=== PATIENT | female | born 2000 | race Two or more races ===

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

== ENCOUNTER 2024-01-04 17:03 | Emergency (ER) | payer MEDICAID ==
[~2024-01-04] VITALS: Ht 162.6 cm; Wt 75.0 kg
[2024-01-04 17:14] VITALS: BP 111/64
[2024-01-04 17:47] LABS: Basophils # (auto) 0.1 10 ^3/uL (0-0.2); Basophils % (auto) 0.6 % (0.0-2.0); Eosinophils # (auto) 0.4 10 ^3/uL (0-0.8); Eosinophils % (auto) 4.1 % (0.0-7.0); Hematocrit 38.4 % (36.0-46.0); Lymphocytes # (auto) 3.1 10 ^3/uL (0.4-5.4); Mean Corpuscular Hemoglobin 27.6 pg (28.0-32.0); Mean Corpuscular Hgb Conc. 33.7 g/dL (32.0-36.0); Monocytes # (auto) 0.5 10 ^3/uL (0-1.3); Monocytes % (auto) 5.3 % (0.0-12.0); Neutrophils # (auto) 5.8 10 ^3/uL (1.6-8.6); Nucleated Red Blood Cells % 0.1 %; Red Blood Cells 4.69 10^6/uL (4.0-5.20); Red Cell Distribution Width 14.3 % (11.8-14.3); White Blood Cell 9.9 10^3/uL (4.4-10.8)
[2024-01-04 17:54] LABS: Chloride 107 mmol/L (98-107); Potassium 4.2 mmol/L (3.5-5.1); Sodium 139 mmol/L (136-145)
[2024-01-04 17:55] LABS: Anion Gap 9 (5-15); Calcium 10.1 mg/dL (8.7-10.4); Carbon Dioxide 23 mmol/L (20-30)
[2024-01-04 18:00] LABS: Blood Urea Nitrogen 8 mg/dL (9-23); Glucose 88 mg/dL (74-106)
[2024-01-04 18:14] LABS: Urine Bacteria FEW /hpf (None Seen); Urine Blood Negative /uL (Negative); Urine Clarity Clear (Clear); Urine Color Light-Yellow (Yellow); Urine Mucus FEW (None Seen); Urine Protein, UAD Negative (Negative); Urine Specific Gravity 1.012 (1.001-1.035); Urine Urobilinogen Normal (Negative); Urine WBC 2 /hpf (0 - 5); Urine pH 5.5 (5.0-9.0)
[2024-01-04 18:39] VITALS: PULSE 75; RESP 19; O2SAT 99
== END 2024-01-04 18:40 | disposition home or self-care (01) ==
LOC: ER 17:03
DX: R07.89 Other chest pain (principal); J45.909 Unspecified asthma, uncomplicated
CPT/HCPCS: 36415; 71045; 80048; 81001; 84484; 85025; 93005

== ENCOUNTER 2024-03-13 12:48 | Emergency (ER) | payer MEDICAID ==
[~2024-03-13] VITALS: Ht 162.6 cm; Wt 70.0 kg
[2024-03-13 13:36] VITALS: BP 138/78; PULSE 107; TEMP 98.3
[2024-03-13] MEDS: ALBUTEROL SULF 2.5 MG/0.5ML(0.5%) NEB SOLN NEB ONE (13:45)
[2024-03-13] MEDS: IPRATROPIUM BROM 0.5 MG/2.5ML INH SOL NEB ONE (13:45)
[2024-03-13] MEDS: methylPREDNISolone SOD SUCC 125 MG/2 ML VL IM ONE (14:15)
[2024-03-13 15:17] VITALS: RESP 18; O2SAT 99
[2024-03-13] MEDS ORDERED: PRED20TA2 PO (15:22)
[2024-03-13] MEDS ORDERED: ALBU108A5 IN (15:22)
[2024-03-13] MEDS ORDERED: AZIT-185 PO (15:22)
== END 2024-03-13 15:32 | disposition home or self-care (01) ==
LOC: ER 12:48
DX: J45.901 Unspecified asthma with (acute) exacerbation (principal)
CPT/HCPCS: 71046; 94640; 96372; 99283; J2919

== ENCOUNTER 2024-06-03 23:17 | Inpatient (IN) | payer MEDICAID ==
[~2024-06-03] VITALS: Ht 162.6 cm; Wt 72.5 kg
[~2024-06-03 23:17] MED LIST: ALBU108A5 IN; AZIT-185 PO; PRED20TA2 PO
[2024-06-03] MEDS: ACETAMINOPHEN 325 MG TAB PO ONE (23:45)
[2024-06-03] MEDS: IPRATROPIUM BROM 0.5 MG/2.5ML INH SOL NEB ONE (23:55)
[2024-06-03] MEDS: ALBUTEROL SULF 2.5 MG/0.5ML(0.5%) NEB SOLN NEB ONE (23:55)
[2024-06-04] VITALS (10 sets, daily range): BP systolic 104–124; BP diastolic 50–67; PULSE 89–115; RESP 12–94; TEMP 97.7–98.3; O2SAT 91–100
--- NOTE | 2024-06-04 01:03 | DVH ---
CHEST RADIOGRAPH Indication: Asthma, wheezing Technique: Single frontal view of the chest was obtained Comparison: XY CHEST PORTABLE on DOS: 01/04/24 FINDINGS: Lines and Tubes: None Lungs: Clear Pleura: No effusion. No pneumothorax. Cardiomediastinal contours: Unremarkable Bones: Unremarkable IMPRESSION: 1. Clear lungs.
[2024-06-04] MEDS: methylPREDNISolone SOD SUCC 125 MG/2 ML VL IM ONE (01:21)
[2024-06-04] MEDS ORDERED: MAGNESIUM SULFATE 1GM/100ML 100 ML IV ONE ×2 (01:30→13:45)
[2024-06-04] MEDS: ACETAMINOPHEN 325 MG TAB PO ONE (01:35)
[2024-06-04] MEDS: ALBUTEROL SULF 2.5 MG/0.5ML(0.5%) NEB SOLN NEB ONE (01:58)
[2024-06-04] MEDS: IPRATROPIUM BROM 0.5 MG/2.5ML INH SOL NEB ONE (01:58)
[2024-06-04] MEDS ORDERED: PRED20TA2 PO (01:59)
[2024-06-04] MEDS ORDERED: AZIT-43 PO (01:59)
[2024-06-04] MEDS ORDERED: ALBUAER3 IN (01:59)
--- NOTE | 2024-06-04 02:00 | ED.PDOC ---
SOB-HPI HPI Comments 23-year-old female presents to ER with complaints of asthma exacerbation x2 weeks. Patient with PMH significant for asthma reports she has been experiencing frequent asthma exacerbations x2 weeks with associated productive cough with white phlegm x1 week. Denies any pain. Reports she has been using her albuterol inhaler without relief. Patient presents to ER ambulatory on arrival, with steady gait, in no distress with pulse ox noted to be 93% on room and moderate wheezing noted to bilateral upper/lower lung garcia. Patient is also noted to have low-grade fever on arrival to ER at 99.7 F, denying any known fever prior to arrival to ER. Denies chest pain, nausea/vomiting, sore t hroat, body aches, chills, dizziness or any further symptoms/complaints Chief Complaint: Asthma Time Seen by MD: 23:41 Primary Care Provider: SIMBA Sadler notes: Nurses Notes, Medications, Allergies Information Source: Patient Mode of Arrival: Ambulatory Past Medical History PAST MEDICAL HISTORY: Asthma Surgical History: Denies all surgeries DIRECTOR CARDIOVASCULAR History: Denies all DIRECTOR CARDIOVASCULAR Hx Family History Family History: Unknown Social History Smoker: Non-Smoker Alcohol: Denies ETOH Use Drugs: Denies Drug Use Lives In: Home Constitutional: denies: chills, diaphoresis, fatigue, fever, malaise, sweats, weakness, others EENTM: denies: blurred vision, double vision, ear bleeding, ear discharge, ear drainage, ear pain, ear ringing, eye pain, eye redness, hearing loss, mouth pain, mouth swelling, nasal discharge, nose bleeding, nose congestion, nose pain, photophobia, tearing, throat pain, throat swelling, voice changes, others Respiratory: reports: others (As stated in HPI) Cardiovascular: denies: chest pain, dizzy spells, diaphoresis, Dyspnea on exertion, edema, irregular heart beat, left arm pain, lightheadedness, palpitations, PND, syncope, others Gastrointestinal: denies: abdomen distended, abdominal pain, blood streaked bowels, constipated, diarrhea, dysphagia, difficulty swallowing, hematemesis, melena, nausea, poor appetite, poor fluid intake, rectal bleeding, rectal pain, vomiting, others Genitourinary: denies: abnormal vagina bleeding, burning, dyspareunia, dysuria, flank pain, frequency, hematuria, incontinence, pain, , vagina discharge, urgency, others Neurological: denies: dizziness, fainting, headache, left sided numbness, left sided weakness, numbness, paresthesia, pre-existing deficit, right sided numbness, right sided weakness, seizure, speech problems, tingling, tremors, weakness, others Musculoskeletal: denies: back pain, gout, joint pain, joint swelling, muscle pain, muscle stiffness, neck pain, others Integumetry: denies: bruises, change in color, change in hair/nails, dryness, laceration, lesions, lumps, rash, wounds, others Allergic/Immunocompromised: denies: Difficulty Healing, Frequent Infections, Hives, Itching, others Hematologic/Lymphatic: denies: anemia, blood clots, easy bleeding, easy bruising, swollen glands, others Endocrine: denies: excessive hunger, excessive sweating, excessive thirst, excessive urination, flushing, intolerance to cold, intolerance to heat, unexplained weight gain, unexplained weight loss, others Psychiatric: denies: anxiety, bipolar disorder, depression, hopeless, panic disorder, schizophrenia, sleepless, suicidal, others Physical Exam General Appearance: No Apparent Distress HEENT: Normal ENT Inspection, PERRL/EOMI, Pharynx Normal, TMs Normal Neck: Full Range of Motion, Non-Tender, Normal Respiratory: Chest Non-Tender, Lungs Clear, No Accessory Muscle Use, No Respiratory Distress, Wheezing (Moderate wheezing noted to bilateral upper/lower lung garcia) Cardiovascular: No Murmur, No Gallop, Regular Rate/Rhythm Breast Exam: Deferred Gastrointestinal: NOT DONE Genitalia: Deferred Pelvic: Deferred Rectal: Deferred Extremities: Normal capillary refill, Normal range of motion Neurologic: Alert, equal opportunity specialist II-XII nml as Tested, No Motor Deficits, Normal Affect, Normal Mood, No Sensory Deficits Cerebellar Function: Normal Reflexes: Normal Skin: Dry, Normal Color, Warm Peripheral Pulses: 2+ Radial (R), 2+ Radial (L), 2+ Brachial (R), 2+ Brachial (L) Lymphatic: No Adenopathy Was a procedure done? Was a procedure done?: No Sedation Sedation?: No Differential Dx Differential Diagnosis: Pneumonia, Pulmonary Embolism, Respiratory Distress, Other (Status asthmaticus) X-Ray, Labs, Meds, VS Vital Signs Date Time Temp Pulse Resp B/P (MAP) Pulse Ox O2 Delivery O2 Flow Rate FiO2 06/04/24 01:58 20 93 Room Air* 0 21 06/04/24 01:37 92 Room Air 0 06/04/24 01:35 99.7 06/04/24 01:34 97.9 104 16 109/69 (82) 97 97.9 06/03/24 23:55 20 86 Room Air* 0 21 06/03/24 23:36 99.7 111 20 111/65 (80) 93 06/03/24 23:36 93 Room Air* 0 21 Lab Test 06/04/24 03:24 Range/Units White Blood Count 13.0 H 4.4-10.8 10^3/uL Red Blood Count 4.53 4.0-5.20 10^6/uL Hemoglobin 12.1 L 12.2-16.2 g/dL Hematocrit 36.9 36.0-46.0 % Mean Corpuscular Volume 81.4 80.0-100.0 fL Mean Corpuscular Hemoglobin 26.6 L 28.0-32.0 pg Mean Corpuscular Hemoglobin Concent 32.7 32.0-36.0 g/dL Red Cell Distribution Width 15.7 H 11.8-14.3 % Platelet Count 323 140-450 10^3/uL Mean Platelet Volume 8.9 6.9-10.8 fL Neutrophils (%) (Auto) 71.7 37.0-80.0 % Lymphocytes (%) (Auto) 21.1 10.0-50.0 % Monocytes (%) (Auto) 2.0 0.0-12.0 % Eosinophils (%) (Auto) 4.6 0.0-7.0 % Basophils (%) (Auto) 0.6 0.0-2.0 % Neutrophils # (Auto) 9.3 H 1.6-8.6 10 ^3/uL Lymphocytes # (Auto) 2.7 0.4-5.4 10 ^3/uL Monocytes # (Auto) 0.3 0-1.3 10 ^3/uL Eosinophils # (Auto) 0.6 0-0.8 10 ^3/uL Basophils # (Auto) 0.1 0-0.2 10 ^3/uL Nucleated Red Blood Cells 0.1 % Sodium Level 139 136-145 mmol/L Potassium Level 3.6 3.5-5.1 mmol/L Chloride Level 105 98-107 mmol/L Carbon Dioxide Level 23 20-31 mmol/L Anion Gap 11 5-15 Blood Urea Nitrogen 9 9-23 mg/dL Creatinine 0.83 0.550-1.02 mg/dL Glomerular Filtration Rate Calc 103 >90 mL/min BUN/Creatinine Ratio 10.8 10.0-20.0 Serum Glucose 139 H 74-106 mg/dL Calcium Level 10.3 8.7-10.4 mg/dL Current Medications Medications (Trade) Dose Ordered Sig/Matthew Route Start Time Stop Time Status Last Admin Ipratropium [place] (Atrovent Medneb) 0.5 mg ONCE ONCE NEB 06/03/24 23:45 06/03/24 23:46 DC 06/03/24 23:55 Albuterol (Ventolin Medneb) 5 mg ONCE ONCE NEB 06/03/24 23:45 06/03/24 23:46 DC 06/03/24 23:55 Methylprednisolone Sodium Succinate (Solu Medrol) 125 mg ONCE ONCE IM 06/03/24 23:45 06/03/24 23:46 DC 06/04/24 01:21 Acetaminophen (Tylenol Tablet) 650 mg ONCE ONCE PO 06/04/24 01:30 06/04/24 01:31 DC 06/04/24 01:35 Albuterol (Ventolin Medneb) 20 mg ONCE ONCE NEB 06/04/24 01:45 06/04/24 01:46 DC 06/04/24 01:58 Ipratropium [place] (Atrovent Medneb) 0.5 mg ONCE ONCE NEB 06/04/24 01:45 06/04/24 01:46 DC 06/04/24 01:58 Ceftriaxone Sodium (Rocephin) 1,000 mg ONCE ONCE IM 06/04/24 02:15 06/04/24 02:16 DC 06/04/24 04:21 Sodium Chloride 1,000 ml @ 1,000 mls/hr Q1H ONCE IV 06/04/24 03:15 06/04/24 04:14 DC 06/04/24 04:20 PATIENT: ABUNDIO DICKSONVINAYAKT: [id number]: [id number] : 2000 LOC: ER ROOM / BED: / AGE / SEX: 23 / F ADM STATUS: REG ER SERVICE 2332 ORDERING PHYSICIAN: JASMYNE LAY PROCEDURE(s): CXR1 - CHEST XRAY 1 VIEW REASON: Asthma, wheezing ORDER NUMBER(s): [id number], ACCESSION NUMBER(s): [id number] CHEST RADIOGRAPH Indication: Asthma, wheezing Technique: Single frontal view of the chest was obtained Comparison: XY CHEST PORTABLE on DOS: 01/04/24 FINDINGS: Lines and Tubes: None Lungs: Clear Pleura: No effusion. No pneumothorax. Cardiomediastinal contours: Unremarkable Bones: Unremarkable IMPRESSION: 1. Clear lungs. ATED BY: HARIKA CARLOS DO DICTATED DATE/TIME: 06/04/24100 SIGNED BY: HARIKA CARLOS DO SIGNED DATE/TIME: 06/04/24100 CC: waiver signed Chest x-ray reviewed Solu-Medrol 125 mg IM ordered Duo nebulizer treatment ordered Continuous nebulizer treatment ordered Tylenol 650 mg p.o. ordered Rocephin 1 g IM ordered CBC ordered BMP ordered Hep-Lock IV ordered Magnesium 1 g IV ordered Patient had no improvement with 2 breathing treatments and remaining hypoxic on RA at 89-90% Patient placed on 2L nasal cannula with improvement to 94% on room air, resting comfortably at bedside Patient admitted to hospitalist for status asthmaticus Images Reviewed?: Images reviewed and evaluated by me Time of 1ST Reevaluation: 12:08 Reevaluation 1ST: N/A Time of 2ND Reevaluation: 01:50 Reevaluation 2ND: Unchanged Patient Education/Counseling: Diagnosis, Treatment, Prognosis, Need For Follow Up Family Education/Counseling: No Family Present Departure 1 Departure Time of Disposition: 03:14 Impression: Primary Impression: Status asthmaticus Qualified Codes: J45.52 - Severe persistent asthma with status asthmaticus Additional Impression: Acute bronchitis Qualified Codes: J20.9 - Acute bronchitis, unspecified Disposition: ADMITTED INPATIENT Condition: Serious Critical Care Note Critical Care Time?: No Stability Stability form required: No Heart Score Heart Score: Heart Score Response (Comments) Value History N/A 0 EKG N/A 0 Age N/A 0 Risk Factors N/A 0 Troponin N/A 0 Total 0 JASMYNE LAY Jun 04, 2024 02:00
[2024-06-04 03:41] LABS: Eosinophils # (auto) 0.6 10 ^3/uL (0-0.8); Hemoglobin 12.1 g/dL (12.2-16.2); Lymphocytes # (auto) 2.7 10 ^3/uL (0.4-5.4); Monocytes # (auto) 0.3 10 ^3/uL (0-1.3); Red Cell Distribution Width 15.7 % (11.8-14.3)
[2024-06-04 03:42] LABS: Basophils # (auto) 0.1 10 ^3/uL (0-0.2); Basophils % (auto) 0.6 % (0.0-2.0); Eosinophils % (auto) 4.6 % (0.0-7.0); Hematocrit 36.9 % (36.0-46.0); Lymphocytes % (auto) 21.1 % (10.0-50.0); Mean Corpuscular Hemoglobin 26.6 pg (28.0-32.0); Mean Corpuscular Hgb Conc. 32.7 g/dL (32.0-36.0); Mean Corpuscular Volume 81.4 fL (80.0-100.0); Neutrophils # (auto) 9.3 10 ^3/uL (1.6-8.6); Neutrophils % (auto) 71.7 % (37.0-80.0); Nucleated Red Blood Cells % 0.1 %; Platelet Count (auto) 323 10^3/uL (140-450); Red Blood Cells 4.53 10^6/uL (4.0-5.20)
[2024-06-04 03:45] LABS: Chloride 105 mmol/L (98-107); Potassium 3.6 mmol/L (3.5-5.1); Sodium 139 mmol/L (136-145)
[2024-06-04 03:46] LABS: Anion Gap 11 (5-15); Carbon Dioxide 23 mmol/L (20-31)
[2024-06-04 03:47] LABS: Calcium 10.3 mg/dL (8.7-10.4)
[2024-06-04 03:52] LABS: BUN/Creatinine Ratio 10.8 (10.0-20.0)
[2024-06-04 03:56] LABS: Blood Urea Nitrogen 9 mg/dL (9-23); Glucose 139 mg/dL (74-106)
[2024-06-04] MEDS ORDERED: TEMAZEPAM 15 MG CAP PO PRN (04:00)
[2024-06-04] MEDS ORDERED: ACETAMINOPHEN 325 MG TAB PO PRN (04:00)
[2024-06-04] MEDS ORDERED: MORPHINE SULFATE INJ 2 MG/ml SYRG IV PRN (04:00)
[2024-06-04] MEDS ORDERED: NITROGLYCERIN 0.4 MG SL TAB SL PRN (04:00)
[2024-06-04] MEDS: SODIUM CHLORIDE 0.9% 1,000 ML IV ONE ×2 (04:20→14:11)
[2024-06-04] MEDS: cefTRIAXone SOD 1,000 MG VL IM ONE (04:21)
[2024-06-04] MEDS: MAGNESIUM SULFATE 1GM/100ML 100 ML IV ONE (04:50)
--- NOTE | 2024-06-04 05:10 | DVHHP2 ---
History of Present Illness Reason for Visit: Shortness of breath History of Present Illness 23-year-old female presents for evaluation of shortness for breath. Patient reports intermittent episodes of asthma attacks over the past two weeks. She states that today she had no relief using her inhaler and nebulizers at home. She also associates having a productive cough with white phlegm over the past one-week. Denies fever or chills. No other acute complaints reported. Past Medical History Asthma Past Surgical History Denies Family History Noncontributory Smoke: No ALCOHOL: none Drugs: None Lives: with Family Review of Systems Review of Systems Review of systems are currently negative otherwise addressed in HPI. Allergies: Coded Allergies: NO KNOWN ALLERGIES (Unverified , 08/15/19) Medications Current Medications Medications Dose Ordered Sig/Matthew Route Start Time Stop Time Status Last Admin Dose Admin Azithromycin 250 ml @ 125 mls/hr DAILY IV 06/04/24 10:00 Methylprednisolone Sodium Succinate 40 mg BID IV 06/04/24 10:00 Albuterol 2.5 mg Q6HPRN PRN NEB 06/04/24 04:00 Ipratropium [place] 0.5 mg Q6HPRN PRN NEB 06/04/24 04:00 Budesonide 0.25 mg BID NEB 06/04/24 10:00 Temazepam 15 mg QHSP PRN PO 06/04/24 04:00 Ondansetron HCl 4 mg Q4HP PRN IV 06/04/24 04:00 Acetaminophen 650 mg Q6HP PRN PO 06/04/24 04:00 Nitroglycerin 0.4 mg Q5MINP PRN SL 06/04/24 04:00 Morphine Sulfate 2 mg Q30M PRN IV 06/04/24 04:00 Exam Vital Signs Vital Signs Date Time Temp Pulse Resp B/P (MAP) Pulse Ox O2 Delivery O2 Flow Rate FiO2 06/04/24 05:03 98.3 109 18 102/53 (69) 91 98.3 06/04/24 01:58 Room Air* 0 21 Exam Gen: 23-year-old female in mild distress Skin: Warm, dry, normal color and texture, no rash. HEENT: Normocephalic atraumatic, mucous membranes moist and pink. Neck: Cervical and supraclavicular nodes normal without enlargement, trachea is midline, thyroid gland is normal without masses. Pulmonary: Bilateral wheeze Cardiac: Regular rate and rhythm. No murmur Abdomen: Soft, nontender, nondistended, bowel sounds present all 4 quadrants, no guarding, no rigidity, no organomegaly. Extremities: No cyanosis, clubbing, no edema Neuro: Cranial nerves II through XII grossly intact, normal affect and speech, no focal motor deficits. Labs/Xrays ORDERING PHYSICIAN: JASMYNE LAY PROCEDURE(s): CXR1 - CHEST XRAY 1 VIEW REASON: Asthma, wheezing ORDER NUMBER(s): [id number], ACCESSION NUMBER(s): [id number] CHEST RADIOGRAPH Indication: Asthma, wheezing Technique: Single frontal view of the chest was obtained Comparison: XY CHEST PORTABLE on DOS: 01/04/24 FINDINGS: Lines and Tubes: None Lungs: Clear Pleura: No effusion. No pneumothorax. Cardiomediastinal contours: Unremarkable Bones: Unremarkable IMPRESSION: 1. Clear lungs. Electronically Signed by: Filippo Maldonado at 06/04/ Labs Test 06/04/24 03:24 Range/Units White Blood Count 13.0 H 4.4-10.8 10^3/uL Red Blood Count 4.53 4.0-5.20 10^6/uL Hemoglobin 12.1 L 12.2-16.2 g/dL Hematocrit 36.9 36.0-46.0 % Mean Corpuscular Volume 81.4 80.0-100.0 fL Mean Corpuscular Hemoglobin 26.6 L 28.0-32.0 pg Mean Corpuscular Hemoglobin Concent 32.7 32.0-36.0 g/dL Red Cell Distribution Width 15.7 H 11.8-14.3 % Platelet Count 323 140-450 10^3/uL Mean Platelet Volume 8.9 6.9-10.8 fL Neutrophils (%) (Auto) 71.7 37.0-80.0 % Lymphocytes (%) (Auto) 21.1 10.0-50.0 % Monocytes (%) (Auto) 2.0 0.0-12.0 % Eosinophils (%) (Auto) 4.6 0.0-7.0 % Basophils (%) (Auto) 0.6 0.0-2.0 % Neutrophils # (Auto) 9.3 H 1.6-8.6 10 ^3/uL Lymphocytes # (Auto) 2.7 0.4-5.4 10 ^3/uL Monocytes # (Auto) 0.3 0-1.3 10 ^3/uL Eosinophils # (Auto) 0.6 0-0.8 10 ^3/uL Basophils # (Auto) 0.1 0-0.2 10 ^3/uL Nucleated Red Blood Cells 0.1 % Sodium Level 139 136-145 mmol/L Potassium Level 3.6 3.5-5.1 mmol/L Chloride Level 105 98-107 mmol/L Carbon Dioxide Level 23 20-31 mmol/L Anion Gap 11 5-15 Blood Urea Nitrogen 9 9-23 mg/dL Creatinine 0.83 0.550-1.02 mg/dL Glomerular Filtration Rate Calc 103 >90 mL/min BUN/Creatinine Ratio 10.8 10.0-20.0 Serum Glucose 139 H 74-106 mg/dL Calcium Level 10.3 8.7-10.4 mg/dL Assessment/Plan Assessment/Plan Assessment Acute on chronic respiratory failure Status asthmaticus Plan Admit the patient to telemetry to the hospitalist Javier stanton Azithromycin Continue treatment per orders. Plan discussed with: Patient My Orders Orders - LAURYN CADENA AGACNP Procedure Category Date Status Time Azithromycin 500mg/ PHA 06/04/24 In Process 250ml (Zithromax 50 10:00 Methylprednisolone PHA 06/04/24 In Process Sod Succ (Solu Medrol 10:00 Albuterol Medneb PHA 06/04/24 In Process (Ventolin Medneb) 04:00 Ipratropium Medneb PHA 06/04/24 In Process (Atrovent Medneb) 04:00 Budesonide PHA 06/04/24 In Process (Inhalation) 10:00 Regular Diet DIET 06/04/24 Transmitted Breakfast Basic Metabolic Panel LAB 06/05/24 Verified 04:00 Admit ADMIT 06/04/24 Transmitted 03:52 Temazepam (Restoril) PHA 06/04/24 In Process 04:00 Ondansetron Hcl PHA 06/04/24 In Process (Zofran) 04:00 Complete Blood Count LAB 06/05/24 Verified 04:00 Condition: Fair TELLO 06/04/24 In Process 03:52 Acetaminophen Tablet PHA 06/04/24 In Process (Tylenol Tablet) 04:00 Bedrest With Bathroom TELLO 06/04/24 In Process Privileg 03:52 Nitroglycerin PHA 06/04/24 In Process Sublingual (Ntrostat 04:00 Morphine Sulfate PHA 06/04/24 In Process Injection 04:00 Stat Ekg For Chest [facility] 06/04/24 In Process Pain 03:52 Notify Md Of Changes [facility] 06/04/24 In Process From Base 03:52 General Maintenance Technician For [facility] 06/04/24 In Process 24 Hours 03:52 Emergency Dysrhythmia [facility] 06/04/24 In Process Protocol 03:52 Rhythm Strips Once [facility] 06/04/24 In Process Every Shift 03:52 Oxygen By Nasal RT 06/04/24 Transmitted Cannula 03:52 Date of Service: Jun 04, 2024 Billing Provider: LAURYN CADENA Common Visit Codes: [id number] INP/OBS CARE (HIGH) LAURYN CADENA Jun 04, 2024 05:10
[2024-06-04] MEDS: methylPREDNISolone SOD SUCC 40 MG/ML VL IV SCH (10:29)
[2024-06-04] MEDS: BUDESONIDE (INHALATION) 0.5 MG/2 ML NEB NEB SCH ×2 (10:44→17:54)
[2024-06-04] MEDS: ALBUTEROL SULF 2.5 MG/0.5ML(0.5%) NEB SOLN NEB PRN (10:47)
[2024-06-04] MEDS: IPRATROPIUM BROM 0.5 MG/2.5ML INH SOL NEB PRN (10:47)
[2024-06-04] MEDS: AZITHROMYCIN 500MG/ 250ML 250 ML IV SCH (11:08)
--- NOTE | 2024-06-04 13:38 | DVHPN2 ---
Subjective Patient states that her breathing difficulties have improved. Reviewed: Care Plan, H&P, Labs, Medications, Previous Orders Changes from previous H/P or p: No Changes General: Per HPI Objective Vitals Vital Signs Date Time Temp Pulse Resp B/P (MAP) Pulse Ox O2 Delivery O2 Flow Rate FiO2 06/04/24 07:45 97.7 105 18 105/65 (78) 94 97.7 06/04/24 07:45 Nasal Cannula* 2 28 Intake/Output Intake and Output 06/04/24 07:00 Intake Total 1000 ml Balance 1000 ml Intake IV Total 1000 ml General Appearance: Alert, Oriented X3, Cooperative, mild distress HEENT: Atraumatic, PERRLA Lungs: Other (Inspiratory and expiratory wheezing in upper and lower lobes.) Cardiovascular: Normal S1, Normal S2, Other (Sinus tachycardia) Abdomen: Normal bowel sounds, Soft, No tenderness Musculoskeletal: Normal sensory function, Normal motor function Neuro: Normal speech Psych/Mental Status: Mental status NL, Mood NL Medications Current Medications Medications Dose Ordered Sig/Matthew Route Start Time Stop Time Status Last Admin Dose Admin Azithromycin 250 ml @ 125 mls/hr DAILY IV 06/04/24 10:00 06/04/24 11:08 125 MLS/HR Methylprednisolone Sodium Succinate 40 mg BID IV 06/04/24 10:00 06/04/24 10:29 40 MG Temazepam 15 mg QHSP PRN PO 06/04/24 04:00 Ondansetron HCl 4 mg Q4HP PRN IV 06/04/24 04:00 Acetaminophen 650 mg Q6HP PRN PO 06/04/24 04:00 Nitroglycerin 0.4 mg Q5MINP PRN SL 06/04/24 04:00 Morphine Sulfate 2 mg Q30M PRN IV 06/04/24 04:00 Albuterol 2.5 mg Q6H NEB 06/04/24 18:00 UNV Budesonide 0.5 mg BID NEB 06/04/24 22:00 UNV Ipratropium [place] 0.5 mg Q6H NEB 06/04/24 18:00 UNV Laboratory Results Laboratory Tests 06/04/24 03:24 Chemistry Test 06/04/24 03:24 Calcium Level 10.3 mg/dL (8.7-10.4) Labs and/or images reviewed: Labs reviewed by me, Image(s) reviewed by me Assessment/Plan Assessment/Plan Impression: -acute hypoxic respiratory failure -asthma exacerbation -leukocytosis Plan: -DuoNebs q.6 hours -Increase Pulmicort to 0.5 mg twice a day -Continue IV Solu-Medrol -gentle IV hydration -continue antibiotic therapy with azithromycin -transfer to Medical/Surgical Total time spent with patient discussing and formulating plan of care: 35 minutes. This medical document was created using an electronic medical record system with [employer] dictation system. Although this document has been carefully reviewed, there may still be some phonetic and typographical errors. These areas are purely typographical due to imperfections of the software programs, and do not reflect any compromise in the patient's medical care. Plan discussed with: Patient, Other (RN) My Orders Orders - LILIAN MTZ NP Procedure Category Date Status Time Albuterol Medneb PHA 06/04/24 Logged (Ventolin Medneb) 18:00 Budesonide PHA 06/04/24 Logged (Inhalation) 22:00 Ipratropium Medneb PHA 06/04/24 Logged (Atrovent Medneb) 18:00 Magnesium Sulfate PHA 06/04/24 Logged 1gm/100ml 13:45 Sodium Chloride 0.9% PHA 06/04/24 Logged 13:45 Transfer Orders XFER 06/04/24 Transmitted 13:32 Date of Service: Jun 04, 2024 Billing Provider: LILIAN MTZ NP Common Visit Codes: [id number] INP/OBS CARE(HIGH) LILIAN MTZ NP Jun 04, 2024 13:38
[2024-06-04] MEDS: ALBUTEROL SULF 2.5 MG/0.5ML(0.5%) NEB SOLN NEB SCH (17:54)
[2024-06-04] MEDS: IPRATROPIUM BROM 0.5 MG/2.5ML INH SOL NEB SCH (17:54)
[2024-06-04 18:16] LABS: Rapid Influenza A Negative (Negative); Rapid Influenza B Negative (Negative)
[2024-06-04 18:17] LABS: COVID19 ANTIGEN SOFIA FIA NEGATIVE (NEGATIVE)
[2024-06-04] MEDS: ONDANSETRON HCL 4 MG/2 ML VIAL IV PRN (22:45)
[2024-06-05] VITALS (13 sets, daily range): BP systolic 94–114; BP diastolic 52–58; PULSE 81–109; RESP 12–18; TEMP 36.6; O2SAT 93–100
[2024-06-05 07:31] LABS: Basophils # (auto) 0 10 ^3/uL (0-0.2); Eosinophils # (auto) 0 10 ^3/uL (0-0.8); Monocytes # (auto) 0.4 10 ^3/uL (0-1.3); Monocytes % (auto) 2.5 % (0.0-12.0); Red Cell Distribution Width 15.9 % (11.8-14.3)
[2024-06-05 07:37] LABS: Hematocrit 36.8 % (36.0-46.0); Lymphocytes # (auto) 1.7 10 ^3/uL (0.4-5.4); Lymphocytes % (auto) 10.7 % (10.0-50.0); Mean Corpuscular Hemoglobin 26.6 pg (28.0-32.0); Mean Corpuscular Hgb Conc. 32.6 g/dL (32.0-36.0); Mean Corpuscular Volume 81.8 fL (80.0-100.0); Neutrophils # (auto) 14.1 10 ^3/uL (1.6-8.6); Neutrophils % (auto) 86.8 % (37.0-80.0); Platelet Count (auto) 353 10^3/uL (140-450); White Blood Cell 16.3 10^3/uL (4.4-10.8)
[2024-06-05 07:44] LABS: Potassium 4.4 mmol/L (3.5-5.1); Sodium 139 mmol/L (136-145)
[2024-06-05 07:45] LABS: Anion Gap 8 (5-15); Calcium 9.8 mg/dL (8.7-10.4); Carbon Dioxide 23 mmol/L (20-31)
[2024-06-05 07:50] LABS: Chloride 108 mmol/L (98-107); Glucose 131 mg/dL (74-106)
[2024-06-05 08:17] LABS: BUN/Creatinine Ratio 14.3 (10.0-20.0); Blood Urea Nitrogen 11 mg/dL (9-23)
[2024-06-05] MEDS ORDERED: DOXY100C79 PO (10:39)
--- NOTE | 2024-06-05 13:10 | DVHDS2 ---
Discharge Summary Date of Admission Jun 04, 2024 at 03:55 Date of Discharge: Jun 05, 2024 Admitting Diagnosis Acute on chronic respiratory failure Labs/Diagnostic Data: Laboratory Results Test 06/05/24 06:04 06/04/24 17:42 White Blood Count 16.3 10^3/uL (4.4-10.8) Red Blood Count 4.50 10^6/uL (4.0-5.20) Hemoglobin 12.0 g/dL (12.2-16.2) Hematocrit 36.8 % (36.0-46.0) Mean Corpuscular Volume 81.8 fL (80.0-100.0) Mean Corpuscular Hemoglobin 26.6 pg (28.0-32.0) Mean Corpuscular Hemoglobin Concent 32.6 g/dL (32.0-36.0) Red Cell Distribution Width 15.9 % (11.8-14.3) Platelet Count 353 10^3/uL (140-450) Mean Platelet Volume 9.3 fL (6.9-10.8) Neutrophils (%) (Auto) 86.8 % (37.0-80.0) Lymphocytes (%) (Auto) 10.7 % (10.0-50.0) Monocytes (%) (Auto) 2.5 % (0.0-12.0) Eosinophils (%) (Auto) 0.0 % (0.0-7.0) Basophils (%) (Auto) 0.0 % (0.0-2.0) Neutrophils # (Auto) 14.1 10 ^3/uL (1.6-8.6) Lymphocytes # (Auto) 1.7 10 ^3/uL (0.4-5.4) Monocytes # (Auto) 0.4 10 ^3/uL (0-1.3) Eosinophils # (Auto) 0 10 ^3/uL (0-0.8) Basophils # (Auto) 0 10 ^3/uL (0-0.2) Nucleated Red Blood Cells 0.0 % Sodium Level 139 mmol/L (136-145) Potassium Level 4.4 mmol/L (3.5-5.1) Chloride Level 108 mmol/L (98-107) Carbon Dioxide Level 23 mmol/L (20-31) Anion Gap 8 (5-15) Blood Urea Nitrogen 11 mg/dL (9-23) Creatinine 0.77 mg/dL (0.550-1.02) Glomerular Filtration Rate Calc 112 mL/min (>90) BUN/Creatinine Ratio 14.3 (10.0-20.0) Serum Glucose 131 mg/dL (74-106) Calcium Level 9.8 mg/dL (8.7-10.4) Influenza Type A Antigen Negative (Negative) Influenza Type B Antigen Negative (Negative) SARS-CoV-2 Antigen (Rapid) Negative (NEGATIVE) Other Laboratory Tests 06/05/24 06:04 Brief Hx & Hospital Course: History of Present Illness 23-year-old female presents for evaluation of shortness for breath. Patient reports intermittent episodes of asthma attacks over the past two weeks. She states that today she had no relief using her inhaler and nebulizers at home. She also associates having a productive cough with white phlegm over the past one-week. Denies fever or chills. No other acute complaints reported. Course of hospitalization: Patient was started on bronchodilators, inhaled corticosteroids as well as IV Solu-Medrol. Antibiotic therapy was started. Today the patient was inspiratory and expiratory wheezing has resolved. She has been weaned off of oxygen. The patient states that she was able to go home today. Patient will be continued on antibiotic therapy with doxycycline 100 mg p.o. b.i.d.. She states that she was not seen her PCP in quite some time and is in the current process of changing her PCP. The patient reports that she has 130 doses left of her Ventolin MDI. Patient will be discharged home, and instructed to follow up with the discharge Clinic in one week. Physical examination General: Alert and Oriented x3. No acute distress. Well-nourished. Eyes: EOMI. Anicteric. HENT: Moist mucous membranes. Lungs: Clear to auscultation bilaterally. No accessory muscle use. Cardiovascular: Regular rate and rhythm. No murmur. No JVD. Abdomen: Soft, non-tender and non-distended. No palpable masses. Extremities: No edema. Non-tender. Skin: No rashes or lesions. Warm. Neurologic: No focal neurological deficits. CN II-XII grossly intact, but not individually tested. Psychiatric: Cooperative. Appropriate mood and affect. Total time spent with patient discussing and formulating plan of care: 35 minutes. This medical document was created using an electronic medical record system with [employer] dictation system. Although this document has been carefully reviewed, there may still be some phonetic and typographical errors. These areas are purely typographical due to imperfections of the software programs, and do not reflect any compromise in the patient's medical care. Condition at Discharge: Fair Final Diagnosis/Problems List Acute asthma exacerbation Secondary Diagnosis: -acute hypoxic respiratory failure -asthma exacerbation -leukocytosis Discharge Disposition: Home Discharge Instruct/Medications Diet: Regular Activity: No Restrictions, As Tolerated Follow Up/Referral: DC clinic in 1 week Medications: Albuterol MDI II puffs Q4hrs asthma attack Doxycycline 100mg po BID x 5 days 36 Discharge Statement: "Patient was advised to return to the ER or call 911 if any headaches, dizziness, shortness of breath, chest pain, abdominal pain, bleeding, fevers, or worsening of medical condition. Patient was counseled about treatment plan, medications, possible side effects, patientverbalized understanding. All questions were answered to the best of my ability. This discharge took greater then 30 minutes in planning, reviewing documentation, counseling the patient, and discussing with other team members." ASSESSMENT ASSESSMENT Assessment Acute asthma exacerbation Date of Service: Jun 05, 2024 Billing Provider: LILIAN MTZ NP Common Visit Codes: 59807-YUU/OBS DISCH DAY >30min LILIAN MTZ NP Jun 05, 2024 13:10
== END 2024-06-05 13:38 | disposition home or self-care (01) | DRG 145 ==
LOC: ER 23:17 → TELE 06-04 03:55 → TELE-E-ADS 06-04 18:28
PROVIDERS: ADMIT Nurse Practitioner; ATTEND Nurse Practitioner Acute Care
DX: J20.9 Acute bronchitis, unspecified (principal); J96.21 Acute and chronic respiratory failure with hypoxia; J45.902 Unspecified asthma with status asthmaticus; J45.901 Unspecified asthma with (acute) exacerbation; R65.10 Systemic inflammatory response syndrome (SIRS) of non-infectious origin without acute organ dysfunction; D72.829 Elevated white blood cell count, unspecified; Z20.822 Contact with and (suspected) exposure to COVID-19
CPT/HCPCS: 36415; 80048; 85025; 87426; 87804; 94640; G0378; J0696; J2405

== ENCOUNTER 2024-06-09 20:55 | Inpatient (IN) | payer MEDICAID ==
[~2024-06-09] VITALS: Ht 162.6 cm; Wt 69.8 kg
[~2024-06-09 20:55] MED LIST changes: +DOXY100C79 PO
--- NOTE | 2024-06-09 21:15 | ED.PDOC ---
History of Present Illness HPI Comments 23-year-old female with PMHx Asthma presents with a chief complaint of SOB, cough, nausea, and vomiting. Patient reports that she was recently admitted and discharged from this facility x 1 week ago for her asthma exacerbation. Patient mentions that the rescue inhaler that she was given has not helped her relieve her symptoms. Patient is currently 91% on room air and is tachycardic at 138. Patient reports some nausea and vomiting, and is not actively vomiting. Time Seen by MD: 21:09 Primary Care Provider: SIMBA Sadler Notes: Medications, Allergies Allergies: Coded Allergies: NO KNOWN ALLERGIES (Unverified , 08/15/19) Home Meds Active Scripts Doxycycline (Monohydrate) (Doxycycline) 100 Mg Cap, 100 MG PO BID for 5 Days, #10 CAP Prov:LILIAN MTZ NP 06/05/24 Albuterol Sulfate (Albuterol Sulfate Hfa) 108 Mcg/Act Aer, 108 MCG IN TID, #90 AER Prov:OSMIN MINOR 03/13/24 Prednisone (Prednisone) 20 Mg Tab, 60 MG PO DAILY, #15 TAB Prov:OSMIN MINOR 03/13/24 Azithromycin (ZITHROMAX TABLET) 250 Mg Tb, 250 MG PO DAILY for 5 Days, #6 TAB Prov:OSMIN MINOR 03/13/24 Discontinued Scripts Albuterol Sulfate (VENTOLIN MDI) 90 Mcg Ih, 2 PUFF IN Q4HPRN, #1 INH 0 Refills Prov:JASMYNE LAY 06/04/24 Prednisone (Prednisone) 20 Mg Tab, 20 MG PO BID for 5 Days, #10 TAB 0 Refills Prov:JASMYNE LAY 06/04/24 Azithromycin (Azithromycin) 250 Mg Tab, 250 MG PO DAILY MDD 500 for 5 Days, #6 TAB 0 Refills 2 TABLETS ORALLY ON DAY ONE, THEN 1 TABLET ORALLY DAILY FOR 4 DAYS Prov:JASMYNE LAY 06/04/24 Information Source: Patient Mode of Arrival: Ambulatory Severity: Moderate Timing: Days Duration: Intermittent Prehospital treatment: None Past Medical History PAST MEDICAL HISTORY: Asthma Surgical History: Denies all surgeries TILE LAYER HELPER History: Denies all TILE LAYER HELPER Hx Family History Family History: Unknown Social History Smoker: Non-Smoker Alcohol: Denies ETOH Use Drugs: Denies Drug Use Lives In: Home Constitutional: denies: chills, diaphoresis, fatigue, fever, malaise, sweats, weakness, others EENTM: denies: blurred vision, double vision, ear bleeding, ear discharge, ear drainage, ear pain, ear ringing, eye pain, eye redness, hearing loss, mouth pain, mouth swelling, nasal discharge, nose bleeding, nose congestion, nose pain, photophobia, tearing, throat pain, throat swelling, voice changes, others Respiratory: reports: cough, shortness of breath; denies: hemoptysis, orthopnea, SOB at rest, SOB with excertion, stridor, wheezing, others Cardiovascular: denies: chest pain, dizzy spells, diaphoresis, Dyspnea on exertion, edema, irregular heart beat, left arm pain, lightheadedness, palpitations, PND, syncope, others Gastrointestinal: reports: nausea, vomiting; denies: abdomen distended, abdo mariusz pain, blood streaked bowels, constipated, diarrhea, dysphagia, difficulty swallowing, hematemesis, melena, poor appetite, poor fluid intake, rectal bleeding, rectal pain, others Genitourinary: denies: abnormal vagina bleeding, burning, dyspareunia, dysuria, flank pain, frequency, hematuria, incontinence, pain, , vagina discharge, urgency, others Neurological: denies: dizziness, fainting, headache, left sided numbness, left sided weakness, numbness, paresthesia, pre-existing deficit, right sided numbness, right sided weakness, seizure, speech problems, tingling, tremors, weakness, others Musculoskeletal: denies: back pain, gout, joint pain, joint swelling, muscle pain, muscle stiffness, neck pain, others Integumetry: denies: bruises, change in color, change in hair/nails, dryness, laceration, lesions, lumps, rash, wounds, others Allergic/Immunocompromised: denies: Difficulty Healing, Frequent Infections, Hives, Itching, others Hematologic/Lymphatic: denies: anemia, blood clots, easy bleeding, easy bruising, swollen glands, others Endocrine: denies: excessive hunger, excessive sweating, excessive thirst, excessive urination, flushing, intolerance to cold, intolerance to heat, unexplained weight gain, unexplained weight loss, others Psychiatric: denies: anxiety, bipolar disorder, depression, hopeless, panic disorder, schizophrenia, sleepless, suicidal, others All Other Systems: Reviewed and Negative Physical Exam General Appearance: No Apparent Distress, Normal HEENT: Normal ENT Inspection, Pharynx Normal, TMs Normal Neck: Full Range of Motion, Non-Tender, Normal, Normal Inspection Respiratory: Chest Non-Tender, Lungs Clear, No Accessory Muscle Use, No Respiratory Distress, Normal Breath Sounds Cardiovascular: No Edema, No JVD, No Murmur, No Gallop, Normal Peripheral Pulses, Tachycardia Breast Exam: Deferred Gastrointestinal: No Organomegaly, Non Tender, No Pulsatile Mass, Normal Bowel Sounds, Soft Genitalia: Deferred Pelvic: Deferred Rectal: Deferred Extremities: No calf tenderness, Normal capillary refill, Normal inspection, Normal range of motion, Non-tender, No pedal edema Musculoskeletal : Apperance: Normal Neurologic: Alert, speech and language tutor II-XII nml as Tested, No Motor Deficits, Normal Affect, Normal Mood, No Sensory Deficits Cerebellar Function: Normal Reflexes: Normal Skin: Dry, Normal Color, Warm Lymphatic: No Adenopathy Was a procedure done? Was a procedure done?: No Differential Dx Considerations may include: Asthma exacerbation, viral syndrome, pneumonia X-Ray, Labs, Meds, VS Vital Signs Date Time Temp Pulse Resp B/P (MAP) Pulse Ox O2 Delivery O2 Flow Rate FiO2 06/10/24 01:19 97.7 110 18 103/69 (80) 94 97.7 06/09/24 21:59 102.9 06/09/24 21:30 18 93 Room Air* 0 21 06/09/24 21:10 102.9 140 24 96/58 (71) 94 Lab Test 06/09/24 22:03 06/09/24 21:26 06/09/24 21:25 Range/Units Influenza Type A Antigen Positive Negative Influenza Type B Antigen Negative Negative SARS-CoV-2 Antigen (Rapid) Negative NEGATIVE White Blood Count 11.4 #H 4.4-10.8 10^3/uL Red Blood Count 4.90 4.0-5.20 10^6/uL Hemoglobin 13.0 12.2-16.2 g/dL Hematocrit 39.9 36.0-46.0 % Mean Corpuscular Volume 81.5 80.0-100.0 fL Mean Corpuscular Hemoglobin 26.6 L 28.0-32.0 pg Mean Corpuscular Hemoglobin Concent 32.7 32.0-36.0 g/dL Red Cell Distribution Width 15.7 H 11.8-14.3 % Platelet Count 383 140-450 10^3/uL Mean Platelet Volume 8.6 6.9-10.8 fL Neutrophils (%) (Auto) 78.1 37.0-80.0 % Lymphocytes (%) (Auto) 14.7 10.0-50.0 % Monocytes (%) (Auto) 6.9 0.0-12.0 % Eosinophils (%) (Auto) 0.2 0.0-7.0 % Basophils (%) (Auto) 0.1 0.0-2.0 % Neutrophils # (Auto) 8.9 H 1.6-8.6 10 ^3/uL Lymphocytes # (Auto) 1.7 0.4-5.4 10 ^3/uL Monocytes # (Auto) 0.8 0-1.3 10 ^3/uL Eosinophils # (Auto) 0 0-0.8 10 ^3/uL Basophils # (Auto) 0 0-0.2 10 ^3/uL Nucleated Red Blood Cells 0.0 % Sodium Level 139 136-145 mmol/L Potassium Level 3.1 L 3.5-5.1 mmol/L Chloride Level 104 98-107 mmol/L Carbon Dioxide Level 26 20-31 mmol/L Anion Gap 9 5-15 Blood Urea Nitrogen 13 9-23 mg/dL Creatinine 0.87 0.550-1.02 mg/dL Glomerular Filtration Rate Calc 97 >90 mL/min BUN/Creatinine Ratio 14.9 10.0-20.0 Serum Glucose 106 74-106 mg/dL Calcium Level 9.7 8.7-10.4 mg/dL Current Medications Medications (Trade) Dose Ordered Sig/Matthew Route Start Time Stop Time Status Last Admin Albuterol (Ventolin Medneb) 5 mg ONCE ONCE NEB 06/09/24 21:15 06/09/24 21:16 DC 06/09/24 21:26 Ipratropium [place] (Atrovent Medneb) 0.5 mg ONCE ONCE NEB 06/09/24 21:15 06/09/24 21:16 DC 06/09/24 21:26 Dexamethasone Sodium Phosphate (Decadron Injection) 10 mg ONCE ONCE PO 06/09/24 21:15 06/09/24 21:16 DC 12/22/24 21:59 Acetaminophen (Tylenol Tablet) 650 mg ONCE ONCE PO 06/09/24 21:30 06/09/24 21:31 DC 06/09/24 21:59 Time of 1ST Reevaluation: 21:39 Reevaluation 1ST: Unchanged Patient Education/Counseling: Diagnosis, Treatment, Prognosis Family Education/Counseling: No Family Present Departure 1 Departure Time of Disposition: 01:10 (Patient has a flu. Patient is now breathing comfortably on like to go home. We will discharge patient home with outpatient follow up) Impression: Primary Impression: Acute asthma exacerbation Qualified Codes: J45.21 - Mild intermittent asthma with (acute) exacerbation Additional Impression: Influenza A Disposition: 01 HOME / SELF CARE / HOMELESS Condition: Stable Additional Instructions: You have influenza a It is important to stay well rested and well hydrated. You can take Tylenol and Motrin as needed for pain and fever. For a sore throat you can drink warm tea with honey. You can take [id number] pseudoephedrine for nasal congestion. Continue to use your inhaler regularly. He should follow up with your regular doctor within 1 week to ensure you are doing better. If your symptoms worsen or you have any other concerns please return to the emergency room. Discharged With: Self Critical Care Note Critical Care Time?: No Stability Stability form required: No I personally scribed for SIGRID DILL MD ([email or web address]) on 06/09/24 at 21:15. Electronically submitted by Eduardo Santacruz ([email or web address]). SIGRID DILL MD Jun 09, 2024 21:15
[2024-06-09] MEDS: ALBUTEROL SULF 2.5 MG/0.5ML(0.5%) NEB SOLN NEB ONE (21:26)
[2024-06-09] MEDS: IPRATROPIUM BROM 0.5 MG/2.5ML INH SOL NEB ONE (21:26)
[2024-06-09 21:49] LABS: Basophils # (auto) 0 10 ^3/uL (0-0.2); Basophils % (auto) 0.1 % (0.0-2.0); Eosinophils # (auto) 0 10 ^3/uL (0-0.8); Eosinophils % (auto) 0.2 % (0.0-7.0); Hematocrit 39.9 % (36.0-46.0); Lymphocytes # (auto) 1.7 10 ^3/uL (0.4-5.4); Lymphocytes % (auto) 14.7 % (10.0-50.0); Mean Corpuscular Hemoglobin 26.6 pg (28.0-32.0); Mean Corpuscular Hgb Conc. 32.7 g/dL (32.0-36.0); Mean Corpuscular Volume 81.5 fL (80.0-100.0); Monocytes # (auto) 0.8 10 ^3/uL (0-1.3); Monocytes % (auto) 6.9 % (0.0-12.0); Neutrophils # (auto) 8.9 10 ^3/uL (1.6-8.6); Neutrophils % (auto) 78.1 % (37.0-80.0); Platelet Count (auto) 383 10^3/uL (140-450); Red Cell Distribution Width 15.7 % (11.8-14.3); White Blood Cell 11.4 10^3/uL (4.4-10.8)
[2024-06-09 21:54] LABS: Chloride 104 mmol/L (98-107); Sodium 139 mmol/L (136-145)
[2024-06-09 21:55] LABS: Anion Gap 9 (5-15); Calcium 9.7 mg/dL (8.7-10.4); Carbon Dioxide 26 mmol/L (20-31)
[2024-06-09] MEDS: ACETAMINOPHEN 325 MG TAB PO ONE (21:59)
[2024-06-09] MEDS: DexAMETHasone SOD PHOS 10MG/1ML VIAL INJ PO ONE (21:59)
[2024-06-09 22:00] LABS: BUN/Creatinine Ratio 14.9 (10.0-20.0); Blood Urea Nitrogen 13 mg/dL (9-23); Glucose 106 mg/dL (74-106); Potassium 3.1 mmol/L (3.5-5.1)
--- NOTE | 2024-06-09 22:01 | DVH ---
CHEST RADIOGRAPH Indication: sob Technique: Frontal and lateral view of the chest was obtained Comparison: XY CHEST TWO VIEWS ROUTINE on DOS: 03/13/24 FINDINGS: Lines and Tubes: None Lungs: Clear Pleura: No effusion. No pneumothorax. Cardiomediastinal contours: Unremarkable Bones: Unremarkable IMPRESSION: 1. No evidence of acute disease.
[2024-06-09 22:58] LABS: COVID19 ANTIGEN SOFIA FIA NEGATIVE (NEGATIVE)
[2024-06-09 23:00] LABS: Rapid Influenza B Negative (Negative)
[2024-06-09 23:02] LABS: Rapid Influenza A Positive (Negative)
[2024-06-10] VITALS (13 sets, daily range): BP systolic 103–109; BP diastolic 55–69; PULSE 86–104; RESP 14–20; TEMP 97.7–98.1; O2SAT 92–100
[2024-06-10] MEDS: ALBUTEROL SULF 2.5 MG/0.5ML(0.5%) NEB SOLN NEB ONE ×2 (02:47→16:45)
--- NOTE | 2024-06-10 03:23 | DVHHPRES ---
History of Present Illness Resident Creating Document: ANTWON NOBLE RESIDENT History of Present Illness This is a 23-year-old female with past medical history of bronchial asthma presented to the ED with a chief complaint of shortness of breath, productive cough, nausea and vomiting for 2 days prior to this admission. According to the patient she was admitted in the [facility] last week for acute asthma exacerbation and was discharged 5 days ago with oral antibiotics. Patient mentioned for last 2 days she was having sore throat, productive cough with whitish to yellowish sputum, low-grade fever and shortness of breath that get worse and that prompted this visit. Patient mentions that the rescue inhaler that she was given has not helped relieve her symptoms. Patient is currently 91% on room air and is tachycardic at 138. Denies chest pain, dizziness, abdominal pain, dysuria, any change in bowel and bladder movement, sick contact or any recent traveling. Past Medical History Bronchial asthma Past Surgical History None Family History Family history significant for bronchial asthma. Past Social History Lives with family Nonsmoker, nonalcoholic and never tried any drugs. Review of Systems Constitutional: Yes: Fever, Malaise; No: Chills, Sweats, Weakness, Other Eyes: No: Pain, Vision change, Conjunctivae inflammation, Eyelid inflammation, Other, Redness ENT: No: Ear pain, Ear discharge, Nose pain, Nose discharge, Nose congestion, Mouth pain, Mouth swelling, Throat pain, Throat swelling, Other Respiratory: Cough, Shortness of breath, Wheezing, Sputum; No: Dry, SOB with excertion, Hemoptysis, Pleuritic Pain, Wheezing, Other Cardiovascular: No: Chest Pain, Palpitations, Orthopnea, Paroxysmal Noc. Dyspnea, Edema, Lt Headedness, Other Gastrointestinal: Nausea, Vomiting; No: Abdominal Pain, Diarrhea, Constipation, Melena, Hematochezia, Other Genitourinary: No Dysuria, No Frequency, No Incontinence, No Hematuria, No Retention, No Other Musculoskeletal: No: other, neck pain, shoulder pain, arm pain, back pain, hand pain, leg pain, foot pain Skin: No: Rash, Lesions, Jaundice, Bruising, Other Neurological: No: Weakness, Numbness, Incoordination, Change in speech, Conf usion, Seizures, Other Allergies: Coded Allergies: NO KNOWN ALLERGIES (Unverified , 08/15/19) Medications Current Medications Medications Dose Ordered Sig/Matthew Route Start Time Stop Time Status Last Admin Dose Admin Albuterol 2.5 mg Q6HR NEB 06/10/24 06:00 Ipratropium [place] 0.5 mg Q6HR NEB 06/10/24 06:00 Methylprednisolone Sodium Succinate 40 mg BID IV 06/10/24 10:00 Levofloxacin/ Dextrose 150 ml @ 100 mls/hr DAILY IV 06/10/24 04:00 Exam Vital Signs Vital Signs Date Time Temp Pulse Resp B/P (MAP) Pulse Ox O2 Delivery O2 Flow Rate FiO2 06/10/24 02:47 18 95 Room Air* 0 21 06/10/24 02:38 97.7 94 88/52 (64) 97.7 Exam Physical examination: General Appearance: Alert, Oriented X3, Cooperative, mild distress HEENT: Atraumatic, PERRLA, EOMI, Mucous membrane moist/pink Respiratory: Congested chest, bilateral wheezing Cardiovascular: Regular rate, Normal S1, Normal S2, No murmurs, no chest wall tenderness Abdominal: Normal bowel sounds, Soft, No tenderness, No hepatospenomegaly, No masses Extremities: No clubbing, No cyanosis, No edema, Normal pulses, No tenderness/swelling Skin: No rashes, No breakdown, No significant lesion Neuro: Normal gait, Normal speech, Strength at 5/5 X4 ext, Normal tone, Sensation intact, grossly intact cranial nerves. Psych/Mental Status: Mental status NL, Mood NL Labs/Xrays Labs Test 06/09/24 22:03 06/09/24 21:26 06/09/24 21:25 Range/Units Influenza Type A Antigen Positive Negative Influenza Type B Antigen Negative Negative SARS-CoV-2 Antigen (Rapid) Negative NEGATIVE White Blood Count 11.4 #H 4.4-10.8 10^3/uL Red Blood Count 4.90 4.0-5.20 10^6/uL Hemoglobin 13.0 12.2-16.2 g/dL Hematocrit 39.9 36.0-46.0 % Mean Corpuscular Volume 81.5 80.0-100.0 fL Mean Corpuscular Hemoglobin 26.6 L 28.0-32.0 pg Mean Corpuscular Hemoglobin Concent 32.7 32.0-36.0 g/dL Red Cell Distribution Width 15.7 H 11.8-14.3 % Platelet Count 383 140-450 10^3/uL Mean Platelet Volume 8.6 6.9-10.8 fL Neutrophils (%) (Auto) 78.1 37.0-80.0 % Lymphocytes (%) (Auto) 14.7 10.0-50.0 % Monocytes (%) (Auto) 6.9 0.0-12.0 % Eosinophils (%) (Auto) 0.2 0.0-7.0 % Basophils (%) (Auto) 0.1 0.0-2.0 % Neutrophils # (Auto) 8.9 H 1.6-8.6 10 ^3/uL Lymphocytes # (Auto) 1.7 0.4-5.4 10 ^3/uL Monocytes # (Auto) 0.8 0-1.3 10 ^3/uL Eosinophils # (Auto) 0 0-0.8 10 ^3/uL Basophils # (Auto) 0 0-0.2 10 ^3/uL Nucleated Red Blood Cells 0.0 % Sodium Level 139 136-145 mmol/L Potassium Level 3.1 L 3.5-5.1 mmol/L Chloride Level 104 98-107 mmol/L Carbon Dioxide Level 26 20-31 mmol/L Anion Gap 9 5-15 Blood Urea Nitrogen 13 9-23 mg/dL Creatinine 0.87 0.550-1.02 mg/dL Glomerular Filtration Rate Calc 97 >90 mL/min BUN/Creatinine Ratio 14.9 10.0-20.0 Serum Glucose 106 74-106 mg/dL Calcium Level 9.7 8.7-10.4 mg/dL Assessment/Plan Assessment/Plan Assessment and plan: # Acute exacerbation of bronchial asthma - Patient is on room air with saturation 97% - Chest x-ray revealed normal study - Duoneb with albuterol and ipratropium q.6 hours - IV methylprednisolone 40 mg b.i.d. - IV Levaquin 750 mg daily. # Influenza A infection - Serology is positive for influenza A, COVID negative - Tamiflu 75 mg p.o. b.i.d. # Hypokalemia - Replenished. Goal of care discussed with the patient for more than 20 minutes full code Plan of treatment discussed with Dr. Lyman Plan discussed with: Patient, Other My Orders Orders - ANTWON NOBLE RESIDENT Procedure Category Date Status Time Admit ADMIT 06/10/24 Transmitted 03:12 Stat Ekg For Chest TELLO 06/10/24 In Process Pain 03:12 Notify Md Of Changes TELLO 06/10/24 In Process From Base 03:12 Yeast Fermentation Attendant For TELLO 06/10/24 In Process 24 Hours 03:12 Emergency Dysrhythmia TELLO 06/10/24 In Process Protocol 03:12 Rhythm Strips Once TELLO 06/10/24 In Process Every Shift 03:12 Oxygen By Nasal RT 06/10/24 Transmitted Cannula 03:12 Albuterol Medneb PHA 06/10/24 In Process (Ventolin Medneb) 06:00 Ipratropium Medneb PHA 06/10/24 In Process (Atrovent Medneb) 06:00 Methylprednisolone PHA 06/10/24 In Process Sod Succ (Solu Medrol 10:00 Levofloxacin 750mg PHA 06/10/24 In Process (Levaquin) 04:00 Regular Diet DIET 06/10/24 Transmitted Breakfast Code Status CODE 06/10/24 Transmitted 03:12 Date of Service: Jun 10, 2024 Billing Provider: MIKE LYMAN MD Common Visit Codes: [id number] INP/OBS CARE (HIGH) ANTWON NOBLE RESIDENT Jun 10, 2024 03:22 MIKE LYMAN MD Jun 10, 2024 09:58
[2024-06-10] MEDS: POTASSIUM EFFERVESENT TAB 25 MEQ PO ONE (03:40)
[2024-06-10] MEDS: levoFLOXacin 750MG 150 ML IV SCH (03:44)
[2024-06-10] MEDS: IPRATROPIUM BROM 0.5 MG/2.5ML INH SOL NEB SCH ×2 (06:20→18:51)
[2024-06-10] MEDS: ALBUTEROL SULF 2.5 MG/0.5ML(0.5%) NEB SOLN NEB SCH ×2 (06:21→18:51)
[2024-06-10 06:55] LABS: Basophils # (auto) 0 10 ^3/uL (0-0.2); Basophils % (auto) 0.4 % (0.0-2.0); Eosinophils # (auto) 0 10 ^3/uL (0-0.8); Eosinophils % (auto) 0.1 % (0.0-7.0); Hematocrit 38.7 % (36.0-46.0); Hemoglobin 12.9 g/dL (12.2-16.2); Lymphocytes % (auto) 9.6 % (10.0-50.0); Mean Corpuscular Hemoglobin 27.2 pg (28.0-32.0); Mean Corpuscular Hgb Conc. 33.4 g/dL (32.0-36.0); Mean Corpuscular Volume 81.4 fL (80.0-100.0); Monocytes # (auto) 0.6 10 ^3/uL (0-1.3); Monocytes % (auto) 5.4 % (0.0-12.0); Neutrophils % (auto) 84.5 % (37.0-80.0); Platelet Count (auto) 334 10^3/uL (140-450); Red Blood Cells 4.76 10^6/uL (4.0-5.20); Red Cell Distribution Width 15.7 % (11.8-14.3); White Blood Cell 10.6 10^3/uL (4.4-10.8)
[2024-06-10 07:01] LABS: Chloride 103 mmol/L (98-107); Potassium 4.2 mmol/L (3.5-5.1); Sodium 137 mmol/L (136-145)
[2024-06-10 07:02] LABS: Anion Gap 10 (5-15); Carbon Dioxide 24 mmol/L (20-31)
[2024-06-10 07:07] LABS: BUN/Creatinine Ratio 12.1 (10.0-20.0)
[2024-06-10 07:08] LABS: Blood Urea Nitrogen 8 mg/dL (9-23); Glucose 143 mg/dL (74-106)
[2024-06-10] MEDS: methylPREDNISolone SOD SUCC 40 MG/ML VL IV SCH (09:46)
[2024-06-10] MEDS: OSELTAMIVIR 75 MG CAP PO SCH (09:46)
[2024-06-10 12:38] LABS: Urine Bacteria None Seen /hpf (None Seen)
[2024-06-10 12:59] LABS: Amphetamine Screen, Urine Neg (NEGATIVE); Barbiturate Scree,Urine Neg (NEGATIVE); Benzodiazephine Screen, Urine Neg (NEGATIVE); Cannabinoid Screen, Urine Neg (NEGATIVE); Cocaine Screen, Urine Neg (NEGATIVE); Opiate Scree,Urine Neg (NEGATIVE); Phencyclidine Screen, Urine Neg (NEGATIVE)
[2024-06-10 13:05] LABS: Urine Blood Negative /uL (Negative); Urine Clarity Clear (Clear); Urine Color Light-Yellow (Yellow); Urine Mucus FEW (None Seen); Urine Protein, UAD Negative (Negative); Urine Specific Gravity 1.018 (1.001-1.035); Urine Urobilinogen Normal (Negative); Urine WBC <1 /hpf (0 - 5); Urine pH 5.5 (5.0-9.0)
--- NOTE | 2024-06-10 16:11 | DVHPNRES ---
Progress Note Date Seen: Jun 10, 2024 Resident Creating Document: DIGNA ANDREA RESIDENT Medical Necessity Reason Pt with a Central, PICC or Fol: No Subjective Review of Systems Patient is 23 years old female with past medical history of bronchial asthma came with a complaint of shortness of breaths. Patient reported that she has been having worsening short of breath for last couple of days. Patient also complained of cough with yellowish green sputum. Patient reported that she was recently hospitalized for acute exertional asthma and and was discharged with albuterol inhaler but later with the inhaler was not helping her out and shortness of breaths was worsening. Patient also endorsed some sore throat for last 2 days and nausea and vomiting couple of times which was mainly watery, no blood. Initial lab workup revealed leukocytosis WBC 11.4, hypokalemia with potassium 3.1, influenza test positive for type a influenza. Chest x-ray negative for acute cardiopulmonary disease. PMH-asthma PSH- none Allergy-NKDA Personal History/ Social History- denies smoking/alcoholism/drug abuse, lives with family Patient was seen today at the bedside. Patient reports some cough and shortness of breaths Cardiovascular- deny acute chest pain or palpitation Gastrointestinal- denies any rectal bleeding, nausea or vomiting Musculoskeletal-denies acute joint swelling or tenderness or redness Neurological- denies acute dysarthria, dysphagia, change in vision Psychiatry- denies depression or SI or HI Skin- denies acute rash or purpura Patient was seen today for clinical evaluation. Labs and chart reviewed. Patient complained of some cough and shortness of breaths. Patient is still wheezing. Patient is on IV antibiotic levofloxacin 750 mg IV daily, tolerating well. Ordered nebulization with ipratropium bromide and albuterol q.4h. Objective vital signs Vital Sign Date Time Temp Pulse Resp B/P (MAP) Pulse Ox O2 Delivery O2 Flow Rate FiO2 06/10/24 14:00 97.7 98 16 119/66 (83) 96 97.7 06/10/24 11:12 Room Air 06/10/24 11:12 0 21 medications Current Medications Medications Dose Ordered Sig/Matthew Route Start Time Stop Time Status Last Admin Dose Admin Albuterol 2.5 mg Q6HR NEB 06/10/24 06:00 06/10/24 11:12 2.5 MG Ipratropium [place] 0.5 mg Q6HR NEB 06/10/24 06:00 06/10/24 11:12 0.5 MG Methylprednisolone Sodium Succinate 40 mg BID IV 06/10/24 10:00 06/10/24 09:46 40 MG Levofloxacin/ Dextrose 150 ml @ 100 mls/hr DAILY IV 06/10/24 04:00 06/10/24 03:44 100 MLS/HR Oseltamivir Phosphate 75 mg BID PO 06/10/24 10:00 06/15/24 09:59 06/10/24 09:46 75 MG Examination General examination- alert, with shortness of breaths HEENT- PEERLA, no acute nasal discharge Cardiovascular- S1-S2 audible, rate and rhythm regular, no murmur Respiratory-wheezing++ Gastrointestinal-nontender, bowel sound+. Nondistended Musculoskeletal-no acute joint swelling or tenderness or redness# Lower extremity- no leg edema Neurological- cranial nerves intact, no acute dysarthria or dysphagia Psychiatry- denies depression or SI or HI Skin- no acute rash or purpura laboratory and microbiology Laboratory Tests 06/10/24 06:29 Test 06/10/24 06:29 Range/Units Serum Glucose 143 H 74-106 mg/dL Problem List/Assessment/Plan Problem List/Assessment/Plan #Acute hypoxic respiratory failure likely due to acute exacerbation of asthma -continue nebulization as prescribed -continue methylprednisolone 40 mg IV b.i.d. -continue levofloxacin 750 mg IV daily #Acute exacerbation of asthma likely due to secondary bacterial infection --continue nebulization as prescribed -continue methylprednisolone 40 mg IV b.i.d. #Influenza type -continue Tamiflu 75 mg b.i.d. # leukocytosis likely due to secondary bacterial infection -current management Goals of care/advance care planning; FULL CODE; discussed with the patient >15 minutes PUD prophylaxis: Omeprazole DVT prophylaxis: Patient ambulating Plan discussed with Dr. Galan, nursing staff, patient Total time spent on patient evaluation, chart review, assessment and plan, discussion discussion >30 minutes Plan discussed with: Patient Plan discussed with: Patient, Other (RN) My Orders My Orders Orders - DIGNA ANDREA RESIDENT Procedure Category Date Status Time Blood Culture SELMA 06/10/24 In Process 08:07 Respiratory Culture SELMA 06/10/24 Logged W/ Gs 08:07 Date of Service: Jun 10, 2024 Billing Provider: TULIO GALAN MD Common Visit Codes: [id number] INP/OBS CARE(HIGH) DIGNA ANDREA RESIDENT Jun 10, 2024 16:11 TULIO GALAN MD Jun 11, 2024 21:00
[2024-06-10] MEDS: IPRATROPIUM BROM 0.5 MG/2.5ML INH SOL NEB ONE (16:45)
[2024-06-10] MEDS: PANTOPRAZOLE 40 MG TAB PO ONE (17:41)
[2024-06-11] VITALS (7 sets, daily range): BP systolic 107; BP diastolic 53; PULSE 79–103; RESP 16–18; TEMP 97.8; O2SAT 94–100
[2024-06-11 06:16] LABS: Anion Gap 8 (5-15); Carbon Dioxide 25 mmol/L (20-31); Chloride 106 mmol/L (98-107); Potassium 4.2 mmol/L (3.5-5.1); Sodium 139 mmol/L (136-145)
[2024-06-11 06:17] LABS: Calcium 10.1 mg/dL (8.7-10.4)
[2024-06-11 06:22] LABS: BUN/Creatinine Ratio 12.3 (10.0-20.0)
[2024-06-11 06:23] LABS: Magnesium 2.2 mg/dL (1.6-2.6)
[2024-06-11 06:24] LABS: Blood Urea Nitrogen 9 mg/dL (9-23); Glucose 131 mg/dL (74-106)
[2024-06-11 07:07] LABS: Basophils # (auto) 0 10 ^3/uL (0-0.2); Basophils % (auto) 0.1 % (0.0-2.0); Eosinophils # (auto) 0 10 ^3/uL (0-0.8); Hematocrit 40.1 % (36.0-46.0); Lymphocytes # (auto) 1.3 10 ^3/uL (0.4-5.4); Lymphocytes % (auto) 9.5 % (10.0-50.0); Mean Corpuscular Hemoglobin 26.5 pg (28.0-32.0); Mean Corpuscular Hgb Conc. 32.4 g/dL (32.0-36.0); Mean Corpuscular Volume 81.7 fL (80.0-100.0); Monocytes # (auto) 0.8 10 ^3/uL (0-1.3); Monocytes % (auto) 5.9 % (0.0-12.0); Neutrophils # (auto) 11.3 10 ^3/uL (1.6-8.6); Neutrophils % (auto) 84.5 % (37.0-80.0); Platelet Count (auto) 365 10^3/uL (140-450); Red Blood Cells 4.91 10^6/uL (4.0-5.20); Red Cell Distribution Width 16.2 % (11.8-14.3); White Blood Cell 13.4 10^3/uL (4.4-10.8)
[2024-06-11] MEDS: PANTOPRAZOLE 40 MG TAB PO SCH (07:08)
[2024-06-11] MEDS ORDERED: BUDE1AER5 IN (09:43)
[2024-06-11] MEDS ORDERED: DOXY1CAP57 PO (09:43)
[2024-06-11] MEDS ORDERED: METH4PAK PO (09:44)
[2024-06-11] MEDS ORDERED: TAMIFLU PO (09:44)
--- NOTE | 2024-06-11 13:08 | DVHDSRES ---
Discharge Summary Date of Admission Resident Creating Document: DIGNA ANDREA RESIDENT Jun 10, 2024 at 03:12 Date of Discharge: Jun 11, 2024 Admitting Diagnosis Acute exacerbation of asthma Labs/Diagnostic Data: Laboratory Results Test 06/11/24 05:10 06/10/24 09:15 06/09/24 22:03 06/09/24 21:25 White Blood Count 13.4 10^3/uL (4.4-10.8) Red Blood Count 4.91 10^6/uL (4.0-5.20) Hemoglobin 13.0 g/dL (12.2-16.2) Hematocrit 40.1 % (36.0-46.0) Mean Corpuscular Volume 81.7 fL (80.0-100.0) Mean Corpuscular Hemoglobin 26.5 pg (28.0-32.0) Mean Corpuscular Hemoglobin Concent 32.4 g/dL (32.0-36.0) Red Cell Distribution Width 16.2 % (11.8-14.3) Platelet Count 365 10^3/uL (140-450) Mean Platelet Volume 9.4 fL (6.9-10.8) Neutrophils (%) (Auto) 84.5 % (37.0-80.0) Lymphocytes (%) (Auto) 9.5 % (10.0-50.0) Monocytes (%) (Auto) 5.9 % (0.0-12.0) Eosinophils (%) (Auto) 0.0 % (0.0-7.0) Basophils (%) (Auto) 0.1 % (0.0-2.0) Neutrophils # (Auto) 11.3 10 ^3/uL (1.6-8.6) Lymphocytes # (Auto) 1.3 10 ^3/uL (0.4-5.4) Monocytes # (Auto) 0.8 10 ^3/uL (0-1.3) Eosinophils # (Auto) 0 10 ^3/uL (0-0.8) Basophils # (Auto) 0 10 ^3/uL (0-0.2) Nucleated Red Blood Cells 0.0 % Sodium Level 139 mmol/L (136-145) Potassium Level 4.2 mmol/L (3.5-5.1) Chloride Level 106 mmol/L (98-107) Carbon Dioxide Level 25 mmol/L (20-31) Anion Gap 8 (5-15) Blood Urea Nitrogen 9 mg/dL (9-23) Creatinine 0.73 mg/dL (0.550-1.02) Glomerular Filtration Rate Calc 120 mL/min (>90) BUN/Creatinine Ratio 12.3 (10.0-20.0) Serum Glucose 131 mg/dL (74-106) Calcium Level 10.1 mg/dL (8.7-10.4) Magnesium Level 2.2 mg/dL (1.6-2.6) Urine Color Light-yellow (Yellow) Urine Clarity Clear (Clear) Urine pH 5.5 (5.0-9.0) Urine Specific [place] 1.018 (1.001-1.035) Urine Protein Negative (Negative) Urine Ketones Trace (Negative) Urine Blood Negative /uL (Negative) Urine Nitrite Negative (Negative) Urine Bilirubin Negative (Negative) Urine Urobilinogen Normal mg/dL (Negative) Urine Leukocyte Esterase Negative /uL (Negative) Urine RBC 2 /hpf (0 - 4) Urine WBC <1 /hpf (0 - 5) Urine Squamous Epithelial Cells Few /hpf (<5) Urine Bacteria None seen /hpf (None Seen) Urine Mucus Few (None Seen) Urine Glucose 3+ mg/dL (Normal) Urine Opiates Screen Neg (NEGATIVE) Urine Fentanyl Screen Neg (NEGATIVE) Urine Barbiturates Screen Neg (NEGATIVE) Urine Phencyclidine Screen Neg (NEGATIVE) Urine Amphetamines Screen Neg (NEGATIVE) Urine Benzodiazepines Screen Neg (NEGATIVE) Urine Cocaine Screen Neg (NEGATIVE) Urine Cannabinoids Screen Neg (NEGATIVE) Influenza Type A Antigen Positive (Negative) Influenza Type B Antigen Negative (Negative) SARS-CoV-2 Antigen (Rapid) Negative (NEGATIVE) Thyroid Stimulating Hormone (TSH) 2.69 uIU/mL (0.55-4.78) Other Laboratory Tests 06/11/24 05:10 Brief Hx & Hospital Course: Patient is 23 years old female with past medical history of bronchial asthma came with a complaint of shortness of breaths. Patient reported that she has been having worsening short of breath for last couple of days. Patient also complained of cough with yellowish green sputum. Patient reported that she was recently hospitalized for acute exertional asthma and and was discharged with albuterol inhaler but later with the inhaler was not helping her out and shortness of breaths was worsening. Patient also endorsed some sore throat for last 2 days and nausea and vomiting couple of times which was mainly watery, no blood. Initial lab workup revealed leukocytosis WBC 11.4, hypokalemia with potassium 3.1, influenza test positive for type a influenza. Chest x-ray negative for acute cardiopulmonary disease. During hospitalization patient was treated conservatively with IV antibiotic, Tamiflu, methylprednisolone and nebulization. Patient's symptoms improved clinically, wheezing resolved. Patient was clinically improving. Patient was hemodynamically stable. Patient is being discharged home with albuterol inhaler, oseltamivir 75 mg p.o. b.i.d. for 4 days, methylprednisolone, budesonide formoterol inhaler, doxycycline 100 mg p.o. b.i.d. for 5 days. Patient's meds were sent to the pharmacy electronically. Patient was advised to follow up with the primary care physician in 1 week. Patient has verbalized understanding,. Patient was hemodynamically stable on discharge PMH-asthma PSH- none Allergy-NKDA Personal History/ Social History- denies smoking/alcoholism/drug abuse, lives with family Patient was seen today at the bedside. Patient reports some cough and shortness of breaths Cardiovascular- deny acute chest pain or palpitation Gastrointestinal- denies any rectal bleeding, nausea or vomiting Musculoskeletal-denies acute joint swelling or tenderness or redness Neurological- denies acute dysarthria, dysphagia, change in vision Psychiatry- denies depression or SI or HI Skin- denies acute rash or purpura General examination- alert, awake, oriented, conversant, not in acute distress HEENT- PEERLA, no acute nasal discharge Cardiovascular- S1-S2 audible, rate and rhythm regular, no murmur Respiratory-CTAB, no wheezing Gastrointestinal-nontender, bowel sound+. Nondistended Musculoskeletal-no acute joint swelling or tenderness or redness# Lower extremity- no leg edema Neurological- cranial nerves intact, no acute dysarthria or dysphagia Psychiatry- denies depression or SI or HI Skin- no acute rash or purpura Operations or Procedures Ph: [phone] DIAGNOSTIC IMAGING Diagnostic Imaging Report : [id number] Signed PATIENT: ROCAEL DICKSONACCT: [id number] UNIT: [id number] : 2000 LOC: ER ROOM / BED: / AGE / SEX: 23 / F ADM STATUS: REG ER SERVICE 10 ORDERING PHYSICIAN: SIGRID DILL MD PROCEDURE(s): CXR2 - CHEST TWO VIEWS ROUTINE REASON: sob ORDER NUMBER(s): [id number], ACCESSION NUMBER(s): [id number] CHEST RADIOGRAPH Indication: sob Technique: Frontal and lateral view of the chest was obtained Comparison: XY CHEST TWO VIEWS ROUTINE on DOS: 03/13/24 FINDINGS: Lines and Tubes: None Lungs: Clear Pleura: No effusion. No pneumothorax. Cardiomediastinal contours: Unremarkable Bones: Unremarkable IMPRESSION: 1. No evidence of acute disease. ATED BY: SEAN CHAPMAN MD DICTATED DATE/TIME: 06/09/242158 SIGNED BY: SEAN CHAPMAN MD SIGNED DATE/TIME: 06/09/242158 CC: Condition at Discharge: Stable Final Diagnosis/Problems List #Acute hypoxic respiratory failure likely due to acute exacerbation of asthma #Acute exacerbation of Asthma likely due to secondary bacterial infection #Influenza type A # leukocytosis likely due to secondary bacterial infection Discharge Disposition: Home Discharge Instruct/Medications Diet: Regular Activity: Light activity Medications: Doxycyclin tamiflu Discharge Statement: "Patient was advised to return to the ER or call 911 if any headaches, dizziness, shortness of breath, chest pain, abdominal pain, bleeding, fevers, or worsening of medical condition. Patient was counseled about treatment plan, medications, possible side effects, patientverbalized understanding. All questions were answered to the best of my ability. This discharge took greater then 30 minutes in planning, reviewing documentation, counseling the patient, and discussing with other team members." ASSESSMENT ASSESSMENT Assessment Acuteexacerbation of Asthma Date of Service: Jun 11, 2024 Billing Provider: TULIO SHER MD Common Visit Codes: 57140-XBC/OBS DISCH DAY >30min DIGNA ANDREA Jun 11, 2024 13:08 TULIO SHER MD Jun 11, 2024 21:01
== END 2024-06-11 12:00 | disposition home or self-care (01) | DRG 113 ==
LOC: EEVIPCON 20:55 → ER 20:55 → OVERFLOW 06-10 03:12 → CENTRAL 06-10 22:05
PROVIDERS: ADMIT Internal Medicine Geriatric Medicine; ATTEND Internal Medicine Geriatric Medicine
DX: J10.1 Influenza due to other identified influenza virus with other respiratory manifestations (principal); J96.01 Acute respiratory failure with hypoxia; R65.11 Systemic inflammatory response syndrome (SIRS) of non-infectious origin with acute organ dysfunction; J45.901 Unspecified asthma with (acute) exacerbation; A49.9 Bacterial infection, unspecified; E87.6 Hypokalemia; Z20.822 Contact with and (suspected) exposure to COVID-19
CPT/HCPCS: 36415; 71046; 80048; 80307; 81001; 83735; 84443; 85025; 87040; 87081; 87426; 87804; 94640; 96365; G0378; J1100; J1956

== ENCOUNTER 2025-04-23 17:54 | Emergency (ER) | payer MEDICAID ==
[~2025-04-23] VITALS: Ht 162.6 cm; Wt 65.1 kg
[~2025-04-23 17:54] MED LIST changes: -AZIT-185 PO; +BUDE1AER5 IN; -DOXY100C79 PO; +DOXY1CAP57 PO; +METH4PAK PO; -PRED20TA2 PO; +TAMIFLU PO
[2025-04-23] MEDS: ALBUTEROL SULF 2.5 MG/0.5ML(0.5%) NEB SOLN NEB ONE (19:15)
[2025-04-23] MEDS: IPRATROPIUM BROM 0.5 MG/2.5ML INH SOL NEB ONE (19:15)
[2025-04-23] MEDS ORDERED: FLUT1AER3 IN (20:47)
[2025-04-23] MEDS ORDERED: ALBU108A5 IN (20:47)
--- NOTE | 2025-04-23 20:48 | ED.PDOC ---
SOB-HPI HPI Comments Patient complaining of shortness of breath started today. States she has been dealing with recurrent asthma attacks over the last year. Says she was taking Breo and albuterol. He says she ran out yesterday. Today has been tacked came back. States she has not seen PCP/rn rehabilitation over the last few months. No fever no chills. Chief Complaint: Asthma Time Seen by MD: 18:02 Primary Care Provider: SIMBA Sadler notes: Nurses Notes Information Source: Patient Mode of Arrival: Ambulatory Severity: Moderate Past Medical History PAST MEDICAL HISTORY: Asthma Surgical History: Denies all surgeries TIRE FIXER History: Denies all TIRE FIXER Hx Family History Family History: Unknown Social History Smoker: Non-Smoker Alcohol: Denies ETOH Use Drugs: Denies Drug Use Lives In: Home Constitutional: denies: chills, diaphoresis, fatigue, fever, malaise, sweats, weakness, others EENTM: denies: blurred vision, double vision, ear bleeding, ear discharge, ear drainage, ear pain, ear ringing, eye pain, eye redness, hearing loss, mouth pain, mouth swelling, nasal discharge, nose bleeding, nose congestion, nose pain, photophobia, tearing, throat pain, throat swelling, voice changes, others Respiratory: reports: SOB at rest, wheezing; denies: cough, hemoptysis, orthopnea, shortness of breath, SOB with excertion, stridor, others Cardiovascular: denies: chest pain, dizzy spells, diaphoresis, Dyspnea on exertion, edema, irregular heart beat, left arm pain, lightheadedness, palpitations, PND, syncope, others Gastrointestinal: denies: abdomen distended, abdominal pain, blood streaked bowels, constipated, diarrhea, dysphagia, difficulty swallowing, hematemesis, melena, nausea, poor appetite, poor fluid intake, rectal bleeding, rectal pain, vomiting, others Genitourinary: denies: abnormal vagina bleeding, burning, dyspareunia, dysuria, flank pain, frequency, hematuria, incontinence, pain, , vagina discharge, urgency, others Neurological: denies: dizziness, fainting, headache, left sided numbness, left sided weakness, numbness, paresthesia, pre-existing deficit, right sided numbness, right sided weakness, seizure, speech problems, tingling, tremors, weakness, others Musculoskeletal: denies: back pain, gout, joint pain, joint swelling, muscle pain, muscle stiffness, neck pain, others Integumetry: denies: bruises, change in color, change in hair/nails, dryness, laceration, lesions, lumps, rash, wounds, others Allergic/Immunocompromised: denies: Difficulty Healing, Frequent Infections, Hives, Itching, others Hematologic/Lymphatic: denies: anemia, blood clots, easy bleeding, easy bruising, swollen glands, others Endocrine: denies: excessive hunger, excessive sweating, excessive thirst, excessive urination, flushing, intolerance to cold, intolerance to heat, unexplained weight gain, unexplained weight loss, others Physical Exam General Appearance: No Apparent Distress, Normal HEENT: Normal ENT Inspection, Pharynx Normal, TMs Normal Neck: Full Range of Motion, Non-Tender, Normal, Normal Inspection Respiratory: Chest Non-Tender, Lungs Clear, No Accessory Muscle Use, No Respiratory Distress, Wheezing (Bilateral sides) Cardiovascular: No Edema, No JVD, No Murmur, No Gallop, Normal Peripheral Pulses, Regular Rate/Rhythm Breast Exam: Deferred Gastrointestinal: No Organomegaly, Non Tender, No Pulsatile Mass, Normal Bowel Sounds, Soft Genitalia: Deferred Pelvic: Deferred Rectal: Deferred Extremities: No calf tenderness, Normal capillary refill, Normal inspection, Normal range of motion, Non-tender, No pedal edema Musculoskeletal : Apperance: Normal Neurologic: Alert, respiratory coordinator II-XII nml as Tested, No Motor Deficits, Normal Affect, Normal Mood, No Sensory Deficits Cerebellar Function: Normal Reflexes: Normal Skin: Dry, Normal Color, Warm Lymphatic: No Adenopathy Was a procedure done? Was a procedure done?: No Differential Dx Differential Diagnosis: Anxiety, Asthma, Bronchitis X-Ray, Labs, Meds, VS Vital Signs Date Time Temp Pulse Resp B/P (MAP) Pulse Ox O2 Delivery O2 Flow Rate FiO2 04/23/25 20:26 98.4 95 16 107/75 (86) 97 98.4 04/23/25 19:15 18 99 Room Air* 0 21 04/23/25 17:57 98.3 119 18 115/81 98 98.3 Current Medications Medications (Trade) Dose Ordered Sig/Matthew Route Start Time Stop Time Status Last Admin Albuterol (Ventolin Medneb) 2.5 mg ONCE ONCE NEB 04/23/25 18:15 04/23/25 18:16 DC 04/23/25 19:15 Ipratropium [place] (Atrovent Medneb) 0.5 mg ONCE ONCE NEB 04/23/25 18:15 04/23/25 18:16 DC 04/23/25 19:15 X-Ray, Labs, Meds, VS Comment Imaging was reviewed by this provider, there is no obvious pathological or acute disease process. Pending radiology review Labs were reviewed by this provider, no abnormalities Vital signs reviewed by this provider, clinically stable Time of 1ST Reevaluation: 20:47 Reevaluation 1ST: Improved Patient Education/Counseling: Diagnosis, Treatment, Need For Follow Up (Follow up with PCP next available appointment. Return emergency department if symptoms worsen.) Family Education/Counseling: Diagnosis SEPSIS Sepsis Screen Date sepsis recognized/suspect: Apr 23, 2025 Time Sepsis recognized/suspect: 1758 Recent Procedure: No On Antibiotic Therapy: No Respiratory Rate >20: No Heart Rate >90: No Temp<36 C (96.8 F) or >38.3 C: No SBP <90 or MAP <65 mmHG: No New Acute Mental Status Change: No Is the patient on CPAP, BIPAP,: No Vital Signs Date Time Temp Pulse Resp B/P (MAP) Pulse Ox O2 Delivery O2 Flow Rate FiO2 04/23/25 20:26 98.4 95 16 107/75 (86) 97 98.4 04/23/25 19:15 18 99 Room Air* 0 21 04/23/25 17:57 98.3 119 18 115/81 98 98.3 Medications Medications Dose Ordered Sig/Matthew Route Start Time Stop Time Status Last Admin Dose Admin Albuterol 2.5 mg ONCE ONCE NEB 04/23/25 18:15 04/23/25 18:16 DC 04/23/25 19:15 Ipratropium [place] 0.5 mg ONCE ONCE NEB 04/23/25 18:15 04/23/25 18:16 DC 04/23/25 19:15 Departure 1 Departure Time of Disposition: 20:45 Impression: Primary Impression: Acute asthma Disposition: 01 HOME / SELF CARE / HOMELESS Condition: Fair Discharged With: Self Critical Care Note Critical Care Time?: No Stability Stability form required: No Heart Score Heart Score: Heart Score Response (Comments) Value History N/A 0 EKG N/A 0 Age N/A 0 Risk Factors N/A 0 Troponin N/A 0 Total 0 TALA LY COUNTER WEIGHER Apr 23, 2025 20:47
[2025-04-24] MEDS: methylPREDNISolone SOD SUCC 125 MG/2 ML VL IM ONE (00:32)
[2025-04-24 00:40] VITALS: BP 112/61; PULSE 71; RESP 16; TEMP 98; O2SAT 96
== END 2025-04-24 00:43 | disposition home or self-care (01) ==
LOC: ER 17:54
DX: J45.909 Unspecified asthma, uncomplicated (principal)
CPT/HCPCS: 94640; 96372; 99283; J2919